=== PATIENT | female | born 1990 | race Caucasian/White ===

== ENCOUNTER 2022-08-29 03:30 | Emergency (ER) | payer OTHER ==
[~2022-08-29] VITALS: Ht 157.5 cm; Wt 54.4 kg
[2022-08-29 03:32] VITALS: BP 106/60
--- NOTE | 2022-08-29 03:46 | NUR ---
PT TO 7
--- NOTE | 2022-08-29 04:02 | NUR ---
XRAY AT BEDSIDE
--- NOTE | 2022-08-29 04:03 | NUR ---
DR HORN AT [facility]
--- NOTE | 2022-08-29 04:11 | NUR ---
32 Y/O F BIBS WITH C/C OF L FOOT PAIN AFTER FALLING WHEN HOLDING SON. PT DENIES ANY HEAD TRAUMA OR LOC. - DEFORMITIES, + SWELLING, + CMS. PT STATED PAIN WORSENED WHILE AT WORK AND WALKING. NKDA -MED HX
--- NOTE | 2022-08-29 04:11 | NUR ---
Note ayaz in EDM - 08/29/22 at 0411 by MNURPM 45YR OLD FEMALE BIB SELF C/O HEADACHE AND EAR PAIN X2 WEEKS. DENIES FEVER N/V/D. DENIES ANY RECENT UPPER RESP ILLNESS. PT IS A&OX4. SKIN WARM AND DRY. NKDA NO MED HX
[2022-08-29] MEDS ORDERED: KETOROLAC 30 MG/ML VIAL IM ONE (04:15)
[2022-08-29] MEDS ORDERED: ACET-8905 PO (04:28)
[2022-08-29] MEDS ORDERED: NAPR-54 PO (04:28)
--- NOTE | 2022-08-29 04:33 | NUR ---
Patient discharged with v/s stable. Written and verbal after care instructions given and explained. Patient alert, oriented and verbalized understanding of instructions. Wheel Chair Assisted with to home. All questions addressed prior to discharge. ID band removed. Patient advised to follow up with PMD. Rx of HYDROCODONE AND NAPROXEN given. Opportunity to ask questions provided and answered.
--- NOTE | 2022-08-29 04:34 | NUR ---
CECILIA WRAP APPLIED . CRUTCHES SET FOR PT.
== END 2022-08-29 04:33 | disposition home or self-care (01) ==
LOC: MED 03:30
DX: S93.602A Unspecified sprain of left foot, initial encounter (principal); Z79.899 Other long term (current) drug therapy; W10.8XXA Fall (on) (from) other stairs and steps, initial encounter; Y93.01 Activity, walking, marching and hiking; Y92.89 Other specified places as the place of occurrence of the external cause; Y99.8 Other external cause status
CPT/HCPCS: 73620; 96372; 99283; J1885; Q0092